=== PATIENT | male | born 1975 ===

== ENCOUNTER 2017-07-10 23:34 | Emergency (ER) | payer SELFPAY ==
--- NOTE | 2017-07-11 00:31 | C.PDOC ---
History Of Present Illness <Eddy Alexandre - Last Filed: 07/11/17 00:53> <Mitzy Grayson - Last Filed: 07/11/17 05:17> 42 y/o male presents to ED in an acute ETOH intoxication. Patient was found in waiting room intoxicated. Patient has extensive history of etoh intoxication. No physical complaints at this time. (Eddy Alexandre) History Per: Patient History/Exam Limitations: no limitations Onset/Duration Of Symptoms: Hrs Current Symptoms Are (Timing): Still Present Suicide/Self Injury Attempted (Context): None Modifying Factor(s): Alcohol <Eddy Alexandre - Last Filed: 07/11/17 00:53> <Mitzy Grayson - Last Filed: 07/11/17 05:17> Time Seen by Provider: 07/10/17 23:53 Chief Complaint (Nursing): Substance Abuse Past Medical History Reviewed: Historical Data, Nursing Documentation, Vital Signs - Medical History PMH: No Chronic Diseases Surgical History: No Surg Hx Family History: States: No Known Family Hx - Social History Hx Alcohol Use: Yes Hx Substance Use: No <Eddy Alexandre - Last Filed: 07/11/17 00:53> Vital Signs: Last Vital Signs Temp 97 F L 07/10/17 23:44 Pulse 86 07/11/17 02:15 Resp 18 07/11/17 02:15 BP 134/85 07/11/17 02:15 Pulse Ox 97 07/11/17 02:15 Review Of Systems Constitutional: Negative for: Fever, Chills Cardiovascular: Negative for: Chest Pain Respiratory: Negative for: Shortness of Breath Gastrointestinal: Negative for: Nausea, Vomiting Skin: Negative for: Rash Psych: Negative for: Anxiety, Suicidal ideation <Eddy Alexandre - Last Filed: 07/11/17 00:53> Physical Exam - Physical Exam Appears: Non-toxic, No Acute Distress, Other (ETOH on breath) Skin: Warm, Dry, No Rash Head: Atraumatic, Normacephalic Eye(s): bilateral: Normal Inspection Oral Mucosa: Moist Cardiovascular: Rhythm Regular Respiratory: Normal Breath Sounds, No Rales, No Rhonchi, No Wheezing Gastrointestinal/Abdominal: Soft, No Tenderness, No Guarding, No Rebound Neurological/Psych: Oriented x3 <Eddy Alexandre - Last Filed: 07/11/17 00:53> ED Course And Treatment O2 Sat by Pulse Oximetry: 96 (RA) Pulse Ox Interpretation: Normal <Eddy Alexandre - Last Filed: 07/11/17 00:53> Pulse Ox Interpretation: Normal Reevaluation Time: 05:15 Reassessment Condition: Improved <Mitzy Graysno - Last Filed: 07/11/17 05:17> Medical Decision Making <Eddy Alexandre - Last Filed: 07/11/17 00:53> <Mitzy Grayson - Last Filed: 07/11/17 05:17> Medical Decision Making: typical ETOH abuse no injuries Eval for intox and medically cleared for incarceration @ [facility] ED 07/06/17 (Eddy Alexandre) Disposition Doctor Will See Patient In The: Office - Disposition Disposition Time: 01:00 <Eddy Alexandre - Last Filed: 07/11/17 00:53> Counseled Patient/Family Regarding: Studies Performed, Diagnosis, Need For Followup <Mitzy Grayson - Last Filed: 07/11/17 05:17> - Disposition Referrals: [facility] [Outside] Condition: GOOD Instructions: Alcohol Intoxication (DC) Forms: [facility] (Finnish) - Clinical Impression Clinical Impression: Alcohol abuse - Scribe Statement The provider has reviewed the documentation as recorded by the Scribe <Eddy Alexandre - Last Filed: 07/11/17 00:53> <Mitzy Grayson - Last Filed: 07/11/17 05:17> - Scribe Statement Sherlyn Lewis All medical record entries made by the Scribe were at my direction and personally dictated by me. I have reviewed the chart and agree that the record accurately reflects my personal performance of the history, physical exam, medical decision making, and the department course for this patient. I have also personally directed, reviewed, and agree with the discharge instructions and disposition. (Eddy Alexandre) Physician Patient Turnover Patient Signed Over To: Mitzy Grayson Handoff Comments: pending sobriety- re-eval and dispo in AM <Eddy Alexandre - Last Filed: 07/11/17 00:53>
[2017-07-11 05:52] VITALS: BP 130/76; PULSE 78; RESP 16; TEMP 98; O2SAT 98
== END 2017-07-11 05:52 | disposition home or self-care (01) ==
LOC: C.ER 23:34
DX: F10.129 Alcohol abuse with intoxication, unspecified (principal)